=== PATIENT | female | born 1955 | race Hispanic/Latino ===

== ENCOUNTER 2025-03-01 08:36 | Outpatient (CLI) | payer MEDICARE, OTHER | END 2025-03-01 08:37 | disposition home or self-care (01) | LOC: BICMAMMO 08:36 | PROVIDERS: ATTEND Family Medicine | DX: Z78.0 Asymptomatic menopausal state (principal); M81.0 Age-related osteoporosis without current pathological fracture | CPT/HCPCS: 77080 ==